=== PATIENT | female | born 1965 | race Caucasian/White ===

== ENCOUNTER 2017-10-21 07:32 | Day surgery (SDC) | payer BC ==
[2017-10-20 12:18] LABS: Absolute Lymphocytes (CBC) 3.3 K/uL (0.7-4.9); Absolute Monocytes 0.8 K/uL (0.1-1.3); Absolute Neutrophil 6.2 K/uL (1.8-8.0); Basophils % 0.9 % (0-1.3); Eosinophils % 4.5 % (0-4.4); Hematocrit 45.1 % (36.0-45.0); Lymphocytes % 30.6 % (15.3-44.8); MCH 27.6 pg (27.0-35.0); MCV 86.2 fL (80-100); MPV 8.6 fL (7.6-11.3); Monocytes % 7.3 % (3.3-12.3); RBC Red Blood Cell Count 5.22 M/uL (3.86-4.86)
[2017-10-20 12:51] LABS: Protime INR 0.95
[2017-10-20 12:53] LABS: Potassium 4.6 mEq/L (3.6-5.0)
[~2017-10-21 07:32] MED LIST: HEPA 1000U/500MLS 2,000 UNIT/1,000 ML BAG IV ONE; HEPARIN 5000 UNIT/ML 1 ML VIAL ONE; LIDOCAINE 1% 20 ML MDV ONE; NICARDIPINE HCL 25 MG/10 ML IV ONE; NITROGLYCERIN/D5W 25 MG/250 ML BTL IV ONE
[2017-10-21] MEDS ORDERED: NA CHLORIDE 0.9% 500 ML ONE (07:54)
[2017-10-21] MEDS ORDERED: NA CHLORIDE 0.9% 0 ML ONE (08:10)
[2017-10-21] MEDS ORDERED: ATROPINE SULF 1 MG/10 ML SYR IV ONE (08:10)
[2017-10-21] MEDS ORDERED: MIDAZOLAM HCL 2 MG/2 ML INJ ONE (08:21)
[2017-10-21] MEDS ORDERED: FENTANYL CITR 100 MCG/2 ML ONE (08:21)
--- NOTE | 2017-10-21 10:24 | OP ---
Surgeon: Anthony Barnes MD Procedure: Left heart catheterization with coronary left ventricular angiography. Findings: The patient's coronary arteries are completely normal. She has a normal right dominant sy stem. Her left ventricular ejection fraction is approximately 30%. Left ventricular end-diastolic p ressure is 10. There is no aortic valve pullback gradient. No significant mitral regurgitation. Procedure In Detail: The patient had a new onset cardiomyopathy, congestive heart failure. She was brought to the [facility] in a fasting state. She was sedated with Versed and fentanyl, prepar ed and draped in the usual sterile fashion. Right radial artery was used. The skin over the artery was anesthetized using 1% lidocaine. The artery was entered using a 21-gauge needle. A 0.021 inch d iameter guidewire was used to cannulate the right radial artery. This was used to insert a 6-Wolof Terumo radial sheath using the modified Seldinger technique. The sheath was flushed. A radial cockt ail was given consisting of nicardipine, heparin, and nitroglycerin. We used a TIG catheter, guided to the ascending aorta using fluoroscopy and a short radius J-tip glidewire. We used the same cathet er to angiogram left coronary, right coronary, and left ventricle. At the end of the procedure, the catheter was removed over a wire. The sheath was removed and the arteriotomy closed with a TR band. Estimated Blood Loss: 5 cc. Skin Therapist: Kimberly Perez. Complications: None. Postoperative Plan: Our plan is to initiate therapy with Entresto. Stop lisinopril to see if there is an improvement in her ejection fraction, and if not, she will be a candidate for defibrillator. TEMO/RUKHSANA Voice ID: [id number] Report ID: [id number]
== END 2017-10-21 10:31 | disposition home or self-care (01) ==
LOC: CCL 07:32
PROVIDERS: ATTEND Internal Medicine
DX: Z88.6 Allergy status to analgesic agent; I10 Essential (primary) hypertension; I42.8 Other cardiomyopathies
CPT/HCPCS: 36415; 80048; 85025; 85610; 85730; 93458; C1893; J0583; J1644; J2250; J3010